=== PATIENT | male | born 1990 | race Caucasian/White ===

== ENCOUNTER 2020-06-17 06:28 | Emergency (ER) | payer MEDICAID ==
[~2020-06-17] VITALS: Ht 180.3 cm; Wt 86.4 kg
[2020-06-17] MEDS ORDERED: haloperidol lactate 5mg/ml inj IM ONE (06:45)
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
[2020-06-17 06:46] VITALS: BP 134/84
[2020-06-17] MEDS ORDERED: normal saline 1000ML IV soln IV ONE (06:55)
--- NOTE | 2020-06-17 07:00 | NUR ---
Pt refusing all treatment after release from [facility] custody. MD Mary ireland
== END 2020-06-17 07:29 ==
LOC: ER 06:29
DX: R00.0 Tachycardia, unspecified (principal); F15.10 Other stimulant abuse, uncomplicated; F17.200 Nicotine dependence, unspecified, uncomplicated; F11.90 Opioid use, unspecified, uncomplicated
CPT/HCPCS: 93005; 99283

== ENCOUNTER 2020-06-20 14:14 | Inpatient (IN) | payer MEDICAID ==
[~2020-06-20] VITALS: Ht 175.3 cm; Wt 86.0 kg
[2020-06-20] MEDS ORDERED: mag hydrox/Alum hydrox/simeth 30ml oral suspension PO PRN (14:50)
[2020-06-20] MEDS ORDERED: loperamide 2mg capsule PO PRN (14:50)
[2020-06-20] MEDS ORDERED: acetaminophen 325mg tablet PO PRN ×2 (14:50)
[2020-06-20] MEDS ORDERED: traZODone 50mg tablet PO PRN (14:50)
[2020-06-20] MEDS ORDERED: magnesium hydroxide 30ml (MOM) UD suspension PO PRN (14:50)
[2020-06-20 16:20] VITALS: BP 142/103
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
[2020-06-20] MEDS ORDERED: NO HOME MEDS (16:48)
[2020-06-20 19:00] VITALS: BP 147/105
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
[2020-06-21 07:55] VITALS: BP 120/74
[2020-06-21] MEDS: nicotine 21mg patch - 24 hr TD SCH (08:00)
[2020-06-21 08:02] LABS: HEMOGLOBIN A1C 5.1 % (4.5-6.2)
[2020-06-21 08:19] LABS: CHOL/HDL RATIO 2.7 (0.00-4.99); CHOLESTEROL 145 MG/DL (0-200); HDL CHOLESTEROL 53 MG/DL (35-60); LDL CHOLESTEROL 53 MG/DL (50-100); TRIGLYCERIDES 171 MG/DL (20-135)
[2020-06-21] MEDS: LORazepam 1 MG tablet PO PRN ×2 (10:59→20:22)
--- NOTE | 2020-06-21 12:16 | NUR ---
Nursing Progress Note: Legal hold: GD 5150 Client on voluntary/involuntary status for GD Report received from nurse with use of SUSANA Clemens RN REASON FOR ADMIT: Client was positive for meth on admit. Denies drug use. Client was in neighbors yard, behaving bizarrely. Assessment What has happened this shift:Patient spent most of the day in bed, patient states he did not sleep well last night, "I was worried I was keeping my roommate awake, I can see now that he is ok". Patient states he has no idea why he is here and what we are going to do for him. Patient denies drug use or any bizarre behavior. Patient had a visitor today, "that is a close family fiend he is a hay rake operator and has known me since I was 8 years old, this bond writer asked patient how was the visit, patient states "it was wonderful". Leatha denies MH and any wrong doing that brought him to this 5150 S/I, H/I:denies A/VH: denies Sleep:Per NOC 6.0 ADL's:none done yet Group attendance:no sleeping Were meds taken:yes PRN Ativan only Any med S/E none Mental Status Exam Appearance:Clean with short hair cut and a few tattoos Eye contact:good Behavior:denail of 5150 Speech:Normal rate and volume Mood:"I can't figure out why I am here, i guess I am ok" Affect:blunted Thought process:somewhat untrustworthily, not a clear understanding of forward thinking Thought Content:"i was worried about my uncle", which does not match the orginal story Cognition:fair Insight:poor Judgment:unclear, too soon to comment Interventions none PRN's used:yes Therapeutic interventions: 1:1 assessment, active listening, medication education, encourage sleep hours and participate in treatment planning. Restraints/seclusion/emergency medication:none Justification of Continued Inpatient Treatment:5150 written for bizarre behavior, Today patient can not give a clear plan for a safe discharge other than the same situation he came from. Pateint needs more time for evaluation and treatment. Addendum: 06/21/20 at 1607 by Niecy Pressley RN Patient slept after his PRN the rest of the shift. Zonked out!, slept through meals.
[2020-06-21] MEDS: NICOTINE POLACRILEX 2 MG LOZENGE BC PRN ×2 (18:07→20:30)
[2020-06-21 20:05] VITALS: BP 127/80
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
[2020-06-22] MEDS: nicotine 21mg patch - 24 hr TD SCH (07:20)
[2020-06-22 08:00] VITALS: BP 116/74
--- NOTE | 2020-06-22 15:10 | NUR ---
Nursing Progress Note: Legal hold: GD 5150 Client on voluntary/involuntary status for GD Report received from nurse with use of SUSANA Arenas RN REASON FOR ADMIT: Client was positive for meth on admit. Denies drug use. Client was in neighbors yard, behaving bizarrely. Assessment What has happened this shift:Patient spent most of the day in bed, Patient states he has no idea why he is here and what we are going to do for him. Patient denies drug use or any bizarre behavior. Although his Er record show differently. Leatha denies MH and any wrong doing that brought him to this 5150 Patient did wake for his visit with provider and allowed 1:1 assessment by this repairer typewriter. Patient denies any mental health symptoms. S/I, H/I:denies A/VH: denies Sleep:Per NOC 9 ADL's:none done yet Group attendance:no sleeping Were meds taken: none yet Any med S/E none Mental Status Exam Appearance:Clean with short hair cut and a few tattoos Eye contact:good Behavior:denial of 5150 Speech:Normal rate and volume Mood: with drawn Affect:blunted Thought process:somewhat untrustworthily, not a clear understanding of forward thinking Thought Content:"trying to figure things out" Cognition:fair Insight:poor Judgment:unclear, too soon to comment Interventions none PRN's used: Therapeutic interventions: 1:1 assessment, active listening, medication education, encourage sleep hours and participate in treatment planning. Restraints/seclusion/emergency medication:none Justification of Continued Inpatient Treatment:5150 written for bizarre behavior, Today patient can not give a clear plan for a safe discharge other than the same situation he came from. Patient needs more time for evaluation and treatment, to prevent readmission. Addendum: 06/22/20 at 1543 by Niecy Pressley RN Patient stayed awake after 3pm snack and is talkative with staff
[2020-06-22] MEDS: LORazepam 1 MG tablet PO PRN (18:55)
[2020-06-22] MEDS ORDERED: calcium carbonate 500mg chew tablet PO SCH (19:15)
[2020-06-22 20:06] VITALS: BP 136/89
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
[2020-06-23 08:00] VITALS: BP 120/73
[2020-06-23] MEDS: nicotine 21mg patch - 24 hr TD SCH (08:00)
--- NOTE | 2020-06-23 14:06 | NUR ---
Nursing Progress Note: Legal hold: 5150 Client on involuntary status for GD Report received from nurse with use of SBAR: Dagoberto RN Why are they here: Client was positive for meth on admit. Denies drug use. Client was in neighbors yard, behaving bizarrely. Assessment What has happened this shift: Received pt. sleeping in bed at the beginning of the shift, he was awoken to attend breakfast by staff, however refused and continued to sleep. Pt. slept until lunch time, when he awoke and attended breakfast in the Group Room. 1:1 completed at bedside, pt. presents as cooperative and animated. He denies any S/I, H/I, A/V/MOONEY, and no delusional statements made. Pt. reports he plans to go stay with a friend and he is excited to see his dog. He states he plans to stay sober, and is looking forward to discharge. S/I, H/I: Denies A/VH: Denies, does not appear internally preoccupied Sleep: Per report, pt. only slept 3.75 hours, however he continued to sleep throughout the morning getting up at lunch time ADL's: Independent Group attendance: N/A Were meds taken: Refused Nicotine Patch, no other meds ordered Any med S/E: None Mental Status Exam Appearance: Neat and appropriately dressed Eye contact: Good Behavior: Cooperative and pleasant Speech: WNL Mood: Pleasant Affect: Animated Thought process: Linear Thought Content: WNL Cognition: A&O X4 Insight: Fair Judgment: Fair Interventions PRN's used: None Therapeutic interventions: Introduced self and established rapport, maintained a safe and supportive environment, ensured contract for safety, provided active listening and positive encouragement, and maintained Q 15min safety checks. Restraints/seclusion/emergency medication: N/A Justification of Continued Inpatient Treatment: Per NIKKO Mccormick, pt's previous psychosis was drug related. He will discharge today.
[2020-06-23] MEDS ORDERED: NICO-668 BC (15:14)
[2020-06-23] MEDS ORDERED: NICO-687 TD (15:14)
--- NOTE | 2020-06-23 16:03 | NUR ---
Discharge Note: Pt. discharged from the unit at approximately 1603, accompanied by this video game script writer. He will be walking to [address], a short distance away, where his friend will pick him up. Pt. will be staying with his friend. Belongings were inventoried and returned to pt. by Tech. This video game script writer reviewed medications and discharge instructions and pt. reported understanding. Nicotine replacement provided and pt. has hard copy of prescriptions with him to have filled. Pt. is able to contract for safety.
== END 2020-06-23 16:03 | disposition home or self-care (01) | DRG 776 ==
LOC: EEVIPCON → ADULT MH 15:55
PROVIDERS: ADMIT Psychiatry & Neurology Psychiatry; ATTEND Psychiatry & Neurology Psychiatry
DX: F15.159 Other stimulant abuse with stimulant-induced psychotic disorder, unspecified (principal); F17.210 Nicotine dependence, cigarettes, uncomplicated; F32.9 Major depressive disorder, single episode, unspecified; Z91.410 Personal history of adult physical and sexual abuse; Z56.0 Unemployment, unspecified; Z59.0 Homelessness
CPT/HCPCS: 36415; 80061; 83036; 93005

== ENCOUNTER 2022-09-26 12:28 | Emergency (ER) | payer MEDICAID ==
[~2022-09-26 12:28] MED LIST: NICO-668 BC; NICO-687 TD; NO HOME MEDS
== END 2022-09-26 14:14 | disposition left against medical advice (07) ==
LOC: ER 12:28
DX: Z04.6 Encounter for general psychiatric examination, requested by authority (principal); Z53.21 Procedure and treatment not carried out due to patient leaving prior to being seen by health care provider

== ENCOUNTER 2022-09-26 15:23 | Emergency (ER) | payer MEDICAID ==
[~2022-09-26] VITALS: Ht 177.8 cm; Wt 65.0 kg
[2022-09-26 16:03] VITALS: O2SAT 100
[2022-09-26 19:46] VITALS: BP 145/104; PULSE 86; RESP 16; TEMP 98.6
--- NOTE | 2022-09-26 19:51 | NUR ---
Pt placed in Bed 26, eating a sandwich.
[2022-09-26 21:00] LABS: BASOPHILS # (AUTO) 0.1 X10'3 (0-0.2); BASOPHILS % (AUTO) 1.1 % (0-1); EOSINOPHILS # (AUTO) 0.1 X10'3 (0-0.9); EOSINOPHILS % (AUTO) 2.1 % (0-6); HEMATOCRIT 45.1 % (42.0-52.0); HEMOGLOBIN 15.2 g/dl (14.0-17.9); LYMPHOCYTES # (AUTO) 1.5 X10'3 (1.1-4.8); LYMPHOCYTES % (AUTO) 22.5 % (21-51); MEAN CORPUSCULAR HEMOGLOBIN 31.8 PG (27.0-31.0); MEAN CORPUSCULAR HGB CONC 33.8 g/dL (33.0-36.5); MEAN CORPUSCULAR VOLUME 94.1 FL (78-98); MEAN PLATELET VOLUME 7.9 FL (7.4-10.4); MONOCYTES # (AUTO) 0.5 X10'3 (0-0.9); MONOCYTES % (AUTO) 7.5 % (2-12); NEUTROPHILS # (AUTO) 4.6 X10'3 (1.8-7.7); NEUTROPHILS % (AUTO) 66.8 % (42-75); PLATELET COUNT 206 X10'3 (140-440); RED BLOOD COUNT 4.79 X10'6 (4.70-6.10); RED CELL DISTRIBUTION WIDTH 12.5 % (11.5-14.5); WHITE BLOOD COUNT 6.8 X10'3 (4.5-11.0)
[2022-09-26 21:14] LABS: ALANINE AMINOTRANSFERASE 46 U/L (12-78); ALBUMIN 3.9 G/DL (3.4-5.0); ALBUMIN/GLOBULIN RATIO 1.2 (1.1-1.5); ALKALINE PHOSPHATASE 58 IU/L (46-116); ANION GAP 9 (8-16); ASPARTATE AMINO TRANSFERASE 26 U/L (10-37); BLOOD UREA NITROGEN 20 MG/DL (7-18); BUN/CREATININE RATIO 16.1 (10.0-20.0); CALCIUM 9.1 MG/DL (8.5-10.1); CHLORIDE 104 MMOL/L (99-107); CREATININE 1.24 MG/DL (0.60-1.10); ETHANOL < 10 MG/DL (<10); GLUCOSE 92 MG/DL (70-104); SODIUM 142 MMOL/L (135-145); TOTAL CARBON DIOXIDE 28.9 MMOL/L (24-32); TOTAL PROTEIN 7.2 G/DL (6.4-8.2); eCRCL 80 ML/MIN; eGFR 68 ML/MIN
--- NOTE | 2022-09-26 22:07 | NUR ---
Pt came to get medical clearance for [facility]. Lab work WNL. Dr Alston released pt...Kimberly paperwork signed. Pt ambulated to the [facility] and left in his own vehicle.
[2022-09-26 22:22] LABS: URINE AMPHETAMINE SCREEN POSITIVE (Neg); URINE BARBITUATE SCREEN NEGATIVE (Neg); URINE BENZODIAZEPINES SCREEN NEGATIVE (Neg); URINE CANNABINOID SCREEN NEGATIVE (Neg); URINE COCAINE SCREEN NEGATIVE (Neg); URINE METHADONE SCREEN NEGATIVE (Neg); URINE OPIATE SCREEN NEGATIVE (Neg); URINE PHENCYCLIDINE SCREEN NEGATIVE (Neg)
== END 2022-10-28 07:52 | disposition home or self-care (01) ==
LOC: ER 15:24
DX: G47.00 Insomnia, unspecified (principal); Z20.822 Contact with and (suspected) exposure to COVID-19; F15.90 Other stimulant use, unspecified, uncomplicated; Z79.899 Other long term (current) drug therapy
CPT/HCPCS: 36415; 80053; 80305; 80320; 85025; 87811; 99283

== ENCOUNTER 2024-01-27 12:43 | Emergency (ER) | payer MEDICAID ==
[~2024-01-27] VITALS: Ht 177.8 cm; Wt 70.3 kg
[2024-01-27 12:52] VITALS: BP 138/91; PULSE 91; RESP 14; TEMP 98.2; O2SAT 98
== END 2024-01-27 14:33 | disposition left against medical advice (07) ==
LOC: ER 12:43
DX: F15.90 Other stimulant use, unspecified, uncomplicated (principal); Z79.899 Other long term (current) drug therapy
CPT/HCPCS: 99281; 99282

== ENCOUNTER 2024-04-18 16:44 | Emergency (ER) | payer MEDICAID ==
[~2024-04-18] VITALS: Ht 172.7 cm; Wt 78.6 kg
[2024-04-18 17:01] VITALS: TEMP 98
[2024-04-18 18:26] VITALS: BP 144/90; PULSE 104; RESP 16; O2SAT 99
== END 2024-04-18 18:28 | disposition home or self-care (01) ==
LOC: ER 16:45
DX: F15.90 Other stimulant use, unspecified, uncomplicated (principal); F29 Unspecified psychosis not due to a substance or known physiological condition; Z71.1 Person with feared health complaint in whom no diagnosis is made
CPT/HCPCS: 99281